=== PATIENT | male | born 1970 | race Caucasian/White ===

== ENCOUNTER → 2020-10-04 | Outpatient (CLI) | payer OTHER ==
[2020-10-04 09:40] VITALS: BP 155/99; PULSE 74; RESP 16; TEMP 98.2
--- NOTE | 2020-10-04 10:08 | P.PAINCN ---
History of Present Illness - Reason for Consult Consult date: 10/04/20 - History of Present Illness Assessment 50 years old male with a chronic history of severe low back pain patient had multiple back surgery, including laminectomy and fusion from the last surgery was done more than a year ago, patient reported that the pain is constant and localized in the low back area, it is radiated to the buttock bilaterally, he denies any motor or sensory deficits he denies any fever or night sweats and there is no change in the bowel movements or urination, intensity of the pain increasing during the daytime when he is walking or working, currently he is using Motrin 800 mg 2-3 times a day and Sizerock when necessary, he denies any side effect of the medication he denies any excessive drowsiness or sleepiness Past Medical History Past Medical History: Hypertension, Sleep Apnea/CPAP/BIPAP Additional Past Medical History / Comment(s): does not use CPAP, degenerative disks, History of Any Multi-Drug Resistant Organisms: MRSA Year Discovered:: 2019 MDRO Source:: incision Past Surgical History: Back Surgery Additional Past Surgical History / Comment(s): repair of hiatal hernia, back fusion with rods, laminectomy x 2, Past Anesthesia/Blood Transfusion Reactions: No Reported Reaction Past Psychological History: No Psychological Hx Reported Smoking Status: Former smoker Past Alcohol Use History: Occasional Additional Past Alcohol Use History / Comment(s): quit smoking 10 yrs ago, smoked for 15-20 yrs Past Drug Use History: Marijuana Additional Drug Use History / Comment(s): CBD oil - Past Family History Father Family Medical History: Cancer Medications and Allergies Home Medications Medication Instructions Recorded Confirmed Type Cyanocobalamin (Vitamin B-12) 1,000 mcg PO DAILY 09/28/20 09/28/20 History [Vitamin B-12] Ibuprofen [Motrin] 800 mg PO Q8H PRN 09/28/20 09/28/20 History Lidocaine Patch 1 tab PO DIRECTED PRN 09/28/20 09/28/20 History Lisinopril(Dose Unknown) 1 tab PO QAM 09/28/20 09/28/20 History Menthol [Biofreeze] 1 applic TOPICAL DIRECTED PRN 09/28/20 09/28/20 History amLODIPine [Norvasc] 5 mg PO DAILY 09/28/20 09/28/20 History hydroCHLOROthiazide 50 mg PO DAILY 09/28/20 09/28/20 History Ashnetodha Root Extract 300 mg PO DAILY 10/04/20 10/04/20 History HYDROcodone/APAP 10-325MG [Sizerock 10 - 325 mg PO DAILY PRN 10/04/20 10/04/20 History 10-325] Allergies Allergy/AdvReac Type Severity Reaction Status Date / Time No Known Allergies Allergy Verified 09/28/20 14:51 Physical Exam Vitals: Vital Signs Temp Pulse Resp BP Pulse Ox 10/04/20 09:29 98.2 F 74 16 155/99 98 Physical Examinations : -Constitutiona : Cooperative , not in acute distress . -HEENT : nech : supple , no Lymphadenopathy , normal thyroid size . : eyes : no ptosis , no icterus, no p hotophobia . - neurologic : Cranial nerve II to XII intact , no focal neurological deffecit . -psychatric : alert , oriented X 3 , appropriate affect , intact judgment and insight . -Lymphatic : no Lymphadenopathy . - musculoskeltal : Lumber spine moter stegnth lower extremities ,thigh and legs 5/5 Right side , 5/5 Left side deep tendon reflexes : normal Knee Jerk , normal ankle Jerk lumber facet Loading Test =positive Right , posiutive Left Range of motion of the lumbar spine Flexion 30 degrees, extension 10 degrees strait leg raising test = positive at 45 degree Fabere test= positive Right , and positive LT . Sever tenderness over the Sacroiliac joint on the Right , and Left sides Gaenslen test= positive right ,and p ositive left . Seated flexion test= positive right ,and positive Left . Distraction test= positive bilaterally Sacroiliac compression test= positive bilaterally Results Comments: MRI of the lumbar spine reviewed Assessment and Plan Plan: Assessment and plan=1-bilateral sacroiliitis. 2-postlaminectomy pain syndrome. I have lengthy discussion with the patient about the option of doing bilateral sacroiliac joint injection, patient does not want a steroid Injection, is concerned about the side effects of the steroid, and I explained to him that we can do the procedure with local anesthetic Only, and she had a good result with proceeding with RFA of the sacroiliac joint , patient agreed with the preceding. She'll be referred for medication management to DR VASQUES Time with Patient: Greater than 30 PQRS Measure Charge Sheet Measure #130: Documentation of Current Meds in Medical Chart: Patient's medications documented in chart Measure #226: Tobacco Use: Screen & Cessation Intervention: Pt not a tobacco user Measure #111: Pneumonia Vaccination: Pneumococcal vaccine NOT administered or previously given Measure #47: Advance Care Plan: Advance care planning discussed & documented, pt chose/unable to give Measure #412: Opioid Treatment Agreement: No documentation of signed opioid treatment agreement Measure #408: Opioid Therapy Follow-up Evaluation: Patient had NO f/u eval minimum every 3 months during opioid therapy Measure #317: Preventitive Care & Scrn High Bld Press & F/U: Pre-hypertensive or hypertensive BP documented, pt will f/u with PCP Measure #128: Body Mass Index (BMI) Screening & Follow-up: BMI documented ABOVE normal parameters - f/u documented Measure #131: Pain Assessment & Follow-up: Pain positive & plan documented, Follow-up scheduled Measure #431: Unhealthy Alcohol Use Preventative Care & Scrn: Patient not identified as an unhealthy alcohol user PQRS Narrative: Blood Pressure 155/99 Pain Intensity [Back] 7 Scale Used Numeric (1 - 10) Hx Alcohol Use (MH) Yes Home Medications: Ambulatory Orders Cyanocobalamin (Vitamin B-12) [Vitamin B-12] 1,000 mcg PO DAILY 09/28/20 Ibuprofen [Motrin] 800 mg PO Q8H PRN 09/28/20 Lidocaine Patch 1 tab PO DIRECTED PRN 09/28/20 Lisinopril(Dose Unknown) 1 tab PO QAM 09/28/20 Menthol [Biofreeze] 1 applic TOPICAL DIRECTED PRN 09/28/20 amLODIPine [Norvasc] 5 mg PO DAILY 09/28/20 hydroCHLOROthiazide 50 mg PO DAILY 09/28/20 Ashwagandha Root Extract 300 mg PO DAILY 10/04/20 HYDROcodone/APAP 10-325MG [Sizerock 10-325] 10 - 325 mg PO DAILY PRN 10/04/20
== END ==
LOC: PNWHC3 09:02
PROVIDERS: ATTEND Specialist
DX: M46.1 Sacroiliitis, not elsewhere classified (principal); M96.1 Postlaminectomy syndrome, not elsewhere classified; I10 Essential (primary) hypertension; Z87.891 Personal history of nicotine dependence; Z79.899 Other long term (current) drug therapy
CPT/HCPCS: 99211

== ENCOUNTER 2020-11-02 06:27 | Day surgery (SDC) | payer OTHER ==
[2020-10-29 10:22] VITALS: BMI 38.1
[~2020-11-02 06:27] MED LIST: LACTATED RINGERS 1,000 ML IV SCH
[2020-11-02 06:44] VITALS: TEMP 97.4
[2020-11-02] MEDS ORDERED: ROPIVACAINE 5MG/ML 20ML VIAL ONE (06:52)
[2020-11-02] MEDS ORDERED: MIDAZOLAM 2 MG/2 ML VIAL ONE (06:52)
[2020-11-02] MEDS ORDERED: fentaNYL (PF) 50 MCG/ML 2 ML AMP ONE (06:52)
--- NOTE | 2020-11-02 07:11 | P.PCN ---
Date of Procedure: 11/02/20 Procedure(s) Performed: Procedure= bilateral sacroiliac joints injection under fluoroscopy guidance (fluoroscopy image stored on file in the radiology Department ) Preoperative diagnosis= 1-sacroiliitis 2-lumbar postlaminectomy pain syndrome Postoperative diagnosis=Same as preop Diagnosis . Complication = none Condition= stable Anesthesia= moderate sedation with intravenous Versed 2 mg , and fentanyl 100 micrograms . Indication for the procedure= patient complaining of low back pain , examination was positive for severe tenderness over the sacroiliac joints bilaterally and patient diagnosed with sacroiliitis, for this reason he was good candidate for sacroiliac joint steroid injection. Description of the procedure= procedure risk and benefits discussed with the patient, including but not limited, risk of infection and bleeding, and ALLERGIC reaction to the medication and not complete pain relief and patient agreed with the preceding patient taken to the operating room, placed in prone position or standard monitors applied to the patient then after induction of anesthesia back prepped with chlorhexidine 3 times , Then under strict sterile technique, first I did the right sacroiliac joint the which was identified under fluoroscopy guidance been local infiltration of the skin and subcu interstitial with lidocaine 1% then 22-gauge Quincke Needle advanced slowly under fluoroscopy and placed in the right sacroiliac joint needle placement confirmed with AP and oblique and lateral view and after appropriate needle placement confirmed and after negative aspiration, or heme , then Ropivacaine 0.5% 4 mL, injected in the right sacroiliac joint after negative aspiration patient tolerated the procedure well without any complication. Then the left sacroiliac joint steroid injection done under strict sterile technique local infiltration of the skin and subcu interstitial at the location of the left sacroiliac joint then a 22-gauge Quincke Needle advanced slowly under fluoroscopy time placed in the left sacroiliac joint, needle placement confirmed with AP and oblique and lateral view then after appropriate needle placement confirmed and after negative aspiration 0.5% Marcaine 4 mL injected in the left sacroiliac joint after negative aspiration patient tolerated the procedure well that any complications and she will follow up in clinic 3 weeks NO STEROID USED FOR THE PROCEDURE, ( IT WAS DIAGNOSTIC BLOCK ONLY ),we will do 2 blocks and if he benefit then we will proceed with RFA of the sacroiliac joint and if the RFA is not approved by the insurance then we could consider referring patient to a spine surgeon for evaluation regarding fusion of the sacroiliac joint
[2020-11-02 07:14] VITALS: RESP 16
[2020-11-02 07:26] VITALS: BP 137/76; PULSE 55
[2020-11-02] MEDS ORDERED: IV FLUID CONTINUATION 1,000 ML IV ONE (07:28)
--- NOTE | 2020-11-02 07:28 | FL ---
EXAMINATION TYPE: FL guided pain mgmt statistic DATE OF EXAM: 11/02/2020 CLINICAL HISTORY: Bilateral sacroiliac joint pain. TECHNIQUE: Fluoroscopy. COMPARISON: None. FINDINGS: Fluoroscopic guidance was provided during pain relief procedure performed by Dr. Escobar . A total of 4 seconds of fluoroscopic time was utilized during the procedure and two spot images ar e acquired. Images acquired shows needle localization at level of bilateral sacroiliac joints. IMPRESSION: As Above.
== END 2020-11-02 07:41 | disposition home or self-care (01) ==
LOC: ORPAIN 06:27
PROVIDERS: ATTEND Specialist
DX: M96.1 Postlaminectomy syndrome, not elsewhere classified (principal); M46.1 Sacroiliitis, not elsewhere classified
CPT/HCPCS: J2250; J3010; J2795; G0260

== ENCOUNTER 2020-11-30 06:44 | Day surgery (SDC) | payer OTHER ==
[2020-11-26 09:52] VITALS: BMI 39.5
[2020-11-30 07:10] VITALS: RESP 16; TEMP 98
[2020-11-30] MEDS ORDERED: MIDAZOLAM 2 MG/2 ML VIAL ONE (07:23)
[2020-11-30] MEDS ORDERED: fentaNYL (PF) 50 MCG/ML 2 ML AMP ONE (07:23)
[2020-11-30] MEDS ORDERED: ROPIVACAINE 5MG/ML 20ML VIAL ONE (07:23)
--- NOTE | 2020-11-30 07:37 | P.PCN ---
Date of Procedure: 11/30/20 Procedure(s) Performed: Procedure= bilateral sacroiliac joints injection under fluoroscopy guidance (fluoroscopy image stored on file in the radiology Department ) Preoperative diagnosis= 1-sacroiliitis 2-lumbar postlaminectomy pain syndrome Postoperative diagnosis=Same as preop Diagnosis . Complication = none Condition= stable Anesthesia= moderate sedation with intravenous Versed 2 mg , and fentanyl 100 micrograms . Indication for the procedure= patient complaining of low back pain , examination was positive for severe tenderness over the sacroiliac joints bilaterally and patient diagnosed with sacroiliitis, for this reason he was good candidate for sacroiliac joint steroid injection. Description of the procedure= procedure risk and benefits discussed with the patient, including but not limited, risk of infection and bleeding, and ALLERGIC reaction to the medication and not complete pain relief and patient agreed with the preceding patient taken to the operating room, placed in prone position or standard monitors applied to the patient then after induction of anesthesia back prepped with chlorhexidine 3 times , Then under strict sterile technique, first I did the right sacroiliac joint the which was identified under fluoroscopy guidance been local infiltration of the skin and subcu interstitial with lidocaine 1% then 22-gauge Quincke Needle advanced slowly under fluoroscopy and placed in the right sacroiliac joint needle placement confirmed with AP and oblique and lateral view and after appropriate needle placement confirmed and after negative aspiration, or heme , then Ropivacaine 0.5% 4 mL, injected in the right sacroiliac joint after negative aspiration patient tolerated the procedure well without any complication. Then the left sacroiliac joint steroid injection done under strict sterile technique local infiltration of the skin and subcu interstitial at the location of the left sacroiliac joint then a 22-gauge Quincke Needle advanced slowly under fluoroscopy time placed in the left sacroiliac joint, needle placement confirmed with AP and oblique and lateral view then after appropriate needle placement confirmed and after negative aspiration 0.5% Ropivacaine 4 mL injected in the left sacroiliac joint after negative aspiration patient tolerated the procedure well that any complications and she will follow up in clinic 2-3 weeks NO STEROID USED FOR THE PROCEDURE, ( IT WAS DIAGNOSTIC BLOCK ONLY ),we will do 2 blocks and if he benefit then we will proceed with RFA of the sacroiliac joint and if the RFA is not approved by the insurance then we could consider referring patient to a spine surgeon for evaluation regarding fusion of the sacroiliac joint
[2020-11-30] MEDS ORDERED: IV FLUID CONTINUATION 1,000 ML IV ONE ×2 (07:40)
[2020-11-30 07:56] VITALS: BP 137/81; PULSE 54
--- NOTE | 2020-11-30 07:59 | FL ---
EXAMINATION TYPE: FL guided pain mgmt statistic DATE OF EXAM: 11/30/2020 HISTORY: Fluoroscopy time 7 seconds of fluoroscopy provided. IMPRESSION: 1. Fluoroscopy time.
== END 2020-11-30 08:10 | disposition home or self-care (01) ==
LOC: ORPAIN 06:44
PROVIDERS: ATTEND Specialist
DX: M46.1 Sacroiliitis, not elsewhere classified (principal); M96.1 Postlaminectomy syndrome, not elsewhere classified
CPT/HCPCS: J2250; J3010; J2795; G0260; 99152

== ENCOUNTER → 2021-01-31 | Outpatient (CLI) | payer OTHER ==
--- NOTE | 2021-01-31 08:28 | P.PN ---
Subjective Progress Note Date: 01/31/21 This is Follow up visit for this 50 years old male with a chronic history of se fatuma low back pain, diagnosed with bilateral sacroiliitis, patient had multiple back surgery, including laminectomy ,and fusion from the last surgery was done more than a year ago, patient reported that the pain is constant and localized in the low back area, it is radiated to the buttock bilaterally, he denies any motor or sensory deficits he denies any fever or night sweats and there is no change in the bowel movements or urination, intensity of the pain increasing during the daytime when he is walking or working, currently he is using Motrin 800 mg 2-3 times a day and [place] when necessary, he denies any side effect of the medication he denies any excessive drowsiness or sleepiness, recently we have done bilateral sacroiliac joint steroid injection,x2 and also been done with local anesthetic only, was only diagnostic block patient reported that he got more than 90% improvement of his low back pain and the pain relief lasted for a few days after each block, and he was able to function and do more activity, -Constitutiona : Cooperative , not in acute distress . -HEENT : nech : supple , no Lymphadenopathy , normal thyroid size . : eyes : no ptosis , no icterus, no photophobia . - neurologic : Cranial nerve II to XII intact , no focal neurological deffecit . -psychatric : alert , oriented X 3 , appropriate affect , intact judgment and insight . -Lymphatic : no Lymphadenopathy . - musculoskeltal : Lumber spine moter stegnth lower extremities ,thigh and legs 5/5 Right side , 5/5 Left side deep tendon reflexes : normal Knee Jerk , normal ankle Jerk lumber facet Loading Test =positive Right , posiutive Left Range of motion of the lumbar spine Flexion 30 degrees, extension 10 degrees strait leg raising test = positive at 45 degree Fabere test= positive Right , and positive LT . Sever tenderness over the Sacroiliac joint on the Right , and Left sides Gaenslen test= positive right ,and positive left . Seated flexion test= positive right ,and positive Left . Distraction test= positive bilaterally Sacroiliac compression test= positive bilaterally Results MRI of the lumbar spine reviewed Assessment and plan=1-bilateral sacroiliitis. 2-postlaminectomy pain syndrome. Patient had more than 90% improvement after diagnostic sacroiliac joint injection 2 , and the pain relief lasted for a few days after each block, I checked with the insurance for possible approval for RFA of the sacroiliac joint, but the insurance doesn't approve the procedure, I discussed with the patient the option of referring him for a surgeon for evaluation regarding fusion of the sacroiliac joint, issuance reported that he is not ready to have any surgery at this time , the patient could benefit from bilateral sacroiliac joint steroid injection and he agreed to have steroid with the injection. PQRS Measure Charge Sheet Measure #130: Documentation of Current Meds in Medical Chart: Patient's medications documented in chart Measure #226: Tobacco Use: Screen & Cessation Intervention: Pt not a tobacco user Measure #111: Pneumonia Vaccination: Pneumococcal vaccine NOT administered or previously given Measure #47: Advance Care Plan: Advance care planning discussed & documented, pt chose/unable to give Measure #412: Opioid Treatment Agreement: No documentation of signed opioid treatment agreement Measure #408: Opioid Therapy Follow-up Evaluation: Patient had NO f/u eval minimum every 3 months during opioid therapy Measure #317: Preventitive Care & Scrn High Bld Press & F/U: Pre-hypertensive or hypertensive BP documented, pt will f/u with PCP Measure #128: Body Mass Index (BMI) Screening & Follow-up: BMI documented ABOVE normal parameters - f/u documented Measure #131: Pain Assessment & Follow-up: Pain positive & plan documented, Follow-up scheduled Measure #431: Unhealthy Alcohol Use Preventative Care & Scrn: Patient not identified as an unhealthy alcohol user PQRS Narrative:
[2021-01-31 08:29] VITALS: BP 175/103; PULSE 71; RESP 18; TEMP 98.2
== END ==
LOC: PNWHC3 08:00
PROVIDERS: ATTEND Specialist
DX: M46.1 Sacroiliitis, not elsewhere classified (principal); M96.1 Postlaminectomy syndrome, not elsewhere classified
CPT/HCPCS: 99211

== ENCOUNTER 2021-03-08 06:28 | Day surgery (SDC) | payer OTHER ==
[2021-03-02 08:40] VITALS: BMI 40.6
[2021-03-08 06:42] VITALS: TEMP 98.6
[2021-03-08] MEDS ORDERED: LIDOCAINE 1% INJ 10MG/ML (20 ML MDV) ONE (07:00)
[2021-03-08] MEDS ORDERED: methylPREDNISolone ACETATE 40 MG/ML 1 ML VIAL ONE (07:00)
[2021-03-08] MEDS ORDERED: MIDAZOLAM 2 MG/2 ML VIAL ONE (07:00)
[2021-03-08] MEDS ORDERED: fentaNYL (PF) 50 MCG/ML 2 ML AMP ONE (07:00)
[2021-03-08] MEDS ORDERED: IOPAMIDOL M200 10 ML VIAL ONE (07:00)
[2021-03-08] MEDS ORDERED: IV FLUID CONTINUATION 1,000 ML IV ONE ×2 (07:20)
[2021-03-08 07:25] VITALS: BP 161/89; PULSE 69; RESP 18
--- NOTE | 2021-03-08 07:34 | FL ---
EXAMINATION TYPE: FL guided pain mgmt statistic DATE OF EXAM: 03/08/2021 CLINICAL HISTORY: Bilateral sacroiliac joint pain. TECHNIQUE: Fluoroscopy. COMPARISON: None. FINDINGS: Fluoroscopic guidance was provided during pain relief procedure performed by Dr. Argueta . A total of 4 seconds of fluoroscopic time was utilized during the procedure and two spot images are acquired. Images acquired shows needle localization at inferior level bilateral sacroiliac joints. IMPRESSION: As Above.
[2021-03-08] MEDS ORDERED: LACTATED RINGERS 1,000 ML IV SCH (07:45)
--- NOTE | 2021-03-08 07:49 | P.PCN ---
Date of Procedure: 03/08/21 Condition: stable Description of Procedure: PREOPERATIVE DIAGNOSIS: Sacroiliac joint dysfunction POSTOPERATIVE DIAGNOSIS: Sacroiliac joint dysfunction. PROCEDURES: 1.bilateral Sacroiliac joint steroid injection 2. Sacroiliac joint arthrogram. SURGEON: Qing Argueta ANESTHESIA: Local and IV sedation : Versed 2 mg, and fentanyl 100 g. EBL: None. Specimen removed: None Fluoroscopic image: saved to electronic medical records. PROCEDURE INDICATIONS: This patient with a history of chronic low back pain, and sacroiliac joint dysfunction. Patient tried conservative therapy. Came here for intervention management. Patient had previous bilateral sacroiliac joint injections with good pain relief. . His insurance refused for radiofrequency ablation, so patient is here for repeat SI joint procedure note. PROCEDURE DESCRIPTION: The patient was seen and identified in the preoperative area. Risks, benefits, complications, and alternatives were discussed with the patient. The patient agreed to proceed with the procedure and signed the consent. IV was started, and vital signs were stable. Patient was taken to the OR and time out was completed. The patient was placed in the prone position on procedure table and a pillow was placed under the abdomen to reduce lumbar lordosis. The lumbosacral area was prepped and draped in the usual sterile fashion. Critical pause was taken. Vital signs were closely monitored during the procedure. For the right side, the fluoroscopic camera was placed in left oblique view and right SI joint lower pole was identified. Skin entry point was infiltrated with 1% lidocaine and 22-gauge 3.5 inch spinal needle was introduced into the inferior one-third of SI joint and after penetrating into the joint arthrogram was done. 0.5 ml of [id number] contrast was injected after negative aspiration for blood, and air and negative for paresthesia. Good spread of the contrast into the SI joint has been seen. Then again after negative aspiration of spinal fluid and blood and negative for neurological symptoms, 3 mL of a solution containing total 2. mL of 1% preservative-free lidocaine mixed with 40 mg of Kenalog was injected. Needle was withdrawn intact. The entire procedure was repeated on the left side as above. Needle was withdraw n intact. Skin was cleansed, and bandages were applied. COMPLICATIONS: None. DISPOSITION / PLANS: The patient was placed in a supine position and transferred to the recovery area in a stable condition for observation and was discharged from the recovery room after meeting discharge criteria. Home discharge instructions given to the patient by the staff. The patient was reexamined prior to discharge. The patient will schedule for follow-up visit with the pain clinic in 4 weeks duration.
== END 2021-03-08 07:55 | disposition home or self-care (01) ==
LOC: ORPAIN 06:28
DX: M53.3 Sacrococcygeal disorders, not elsewhere classified (principal); M54.5 Low back pain
CPT/HCPCS: G0260; J2250; J1030; J2001 ×2; J3010; Q9966; 99152

== ENCOUNTER → 2021-04-04 | Outpatient (CLI) | payer OTHER ==
[2021-04-04 13:53] VITALS: BP 167/100; PULSE 72; RESP 18
--- NOTE | 2021-04-04 14:26 | P.PAINPG ---
Subjective Progress Note Date: 04/04/21 Principal diagnosis: Lumbar back pain, and hip pain Mr. Ross is a 50 -year-old pleasant male came to the [facility] pain clinic for postprocedure evaluation . Patient has ongoing pain for many years. Patient had lumbar back surgery, and fusion. Patient is actively working as a concrete floater. He had a previous bilateral sacroiliac joint injection which is still helping to some extent relieving his pain. He had more than 70% pain relief with previous injection. Patient describes pain is aching, throbbing, constant type of pain. Pain is radiating to below the knee. Patient rated pain levels are 7-8 out of 10 in severity. With the help of medications pain levels are 5 out of 10 in severity. Activities making pain worse. Medications, resting, interventional procedures helping in relieving patient's pain. Patient pain some days better than others. Overall activities decreased secondary to pain. Because of the pain sometimes patient is feeling lack of sleep, interest, and energy. Denied any side effects with the medications. Denied any bowel or bladder problems at this time. Patient is not using any support for walking . Patient denies any suicidal or homicidal ideations intent or plan. Patient denies any auditory or visual hallucinations. Patient denied any red flag symptoms related to pain. Objective - Vital Signs Vital signs: Vital Signs Temp Pulse 72 04/04/21 13:48 Resp 18 04/04/21 13:48 BP 167/100 04/04/21 13:48 Pulse Ox 95 04/04/21 13:48 - Exam General: Well-developed, well-nourished, no acute distress HEENT: Normocephalic, and atraumatic Neck: Supple, no neck swelling Psychiatric: Appropriate mood, and affect PULMONOLOGIST: No noticeable focal neurological deficits Musculoskeletal: Upper extremity: Normal strength, and range of motion. Sensation grossly intact Lower extremity: Normal strength, and decreased range of motion secondary to pain Lumbar spine: Paravertebral tenderness: positive , healed lumbar scar Lumbar facet load test : positive Sacroiliac joint tenderness: Positive Thigh thrust test: Positive SI joint compression test: Positive Fabere test: Positive - Constitutional Constitutional Comment(s): 13 point review of symptoms negative except as mentioned in the history of present illness Assessment and Plan Assessment: Lumbar postlaminectomy syndrome Lumbar spondylosis without myelopathy Sacroiliac joint dysfunction Plan: #1 psychological risk tools were reviewed. Diagnoses, prognosis, and multiple treatment options including but not limited to physical therapy, interventional therapy, adjunct medication therapy, complementary alternative medicine options, narcotic medication, and surgical options were discussed with the patient. And all questions were answered to the patient's satisfaction. #2 treatment plan agreement : Patient was thoroughly discussed regarding the treatment options, alternatives, and importance of exercises as tolerated. Patient clearly understood. #3 Patient was counseled on importance of regular exercise. Including franklin chi, aerobic exercises as tolerated. Which helps for chronic pain, and overall well- being. Patient also counseled regarding importance of weight control role in chronic pain, and overall other health issues. By altering diet habits, minimizing sugar intake, & processed foods helps in minimizing Inflammation. Patient also recommended to drink plenty of water daily. #4 investigations: MAPS- reviewed , urine drug test-not done #5 diagnostic tests: None #6 consultation : Neurosurgical consultation # 7 interventional procedures: Bilateral sacroiliac joint injection. Procedure, complications, alternatives discussed with the patient. #8 medications None from the pain clinic #9 morphine milligrams equivalents dose ( MME) per day: 0. # 10 TENS unit's, #11 disposition: scheduled to follow up with pain clinic in 4-8 weeks duration. Time with Patient: Less than 30 PQRS Measure Charge Sheet Measure #130: Documentation of Current Meds in Medical Chart: Patient's medications documented in chart Measure #226: Tobacco Use: Screen & Cessation Intervention: Pt not a tobacco u ser Measure #111: Pneumonia Vaccination: Pneumococcal vaccine NOT administered or previously given Measure #47: Advance Care Plan: Advance care planning discussed & documented, pt chose/unable to give Measure #412: Opioid Treatment Agreement: No documentation of signed opioid treatment agreement Measure #408: Opioid Therapy Follow-up Evaluation: Patient had NO f/u eval minimum every 3 months during opioid therapy Measure #317: Preventitive Care & Scrn High Bld Press & F/U: Pre-hypertensive or hypertensive BP documented, pt will f/u with PCP Measure #128: Body Mass Index (BMI) Screening & Follow-up: BMI documented ABOVE normal parameters - f/u documented Measure #131: Pain Assessment & Follow-up: Pain positive & plan documented Measure #431: Unhealthy Alcohol Use Preventative Care & Scrn: Patient not identified as an unhealthy alcohol user Mode of Arrival: Ambulatory - Pain Location Back Non-Pharmacological Interventions: Heat, Home Exercise, Ice, Massage Pharmacological Interventions: Block, PRN Medication PQRS Narrative: Blood Pressure 167/100 Pain Intensity [Back] 10 Scale Used Numeric (1 - 10) Hx Alcohol Use (MH) Yes Home Medications: Ambulatory Orders Ibuprofen [Motrin] 800 mg PO Q8H PRN 09/28/20 Lidocaine 5% Patch [Lidoderm] 1 patch TOPICAL DAILY PRN 09/28/20 Menthol [Biofreeze] 1 applic TOPICAL DIRECTED PRN 09/28/20 amLODIPine [Norvasc] 10 mg PO DAILY 09/28/20 lisinopriL [Zestril] 40 mg PO QAM 09/28/20 Cbd Topical 1 dose TOPICAL DIRECTED PRN 11/25/20 Allopurinol [Zyloprim] 100 mg PO DAILY 03/30/21 Cyanocobalamin (Vitamin B-12) [Vitamin B12] 1,000 mcg PO DAILY 03/30/21 Meloxicam 15 mg PO DAILY 03/30/21 Controlled Substance Measures - Controlled Substance Measures Is patient prescribed a controlled substance at discharge?: No
== END ==
LOC: PNWHC3 13:28
DX: M96.1 Postlaminectomy syndrome, not elsewhere classified (principal); M47.816 Spondylosis without myelopathy or radiculopathy, lumbar region; M53.3 Sacrococcygeal disorders, not elsewhere classified
CPT/HCPCS: 99211

== ENCOUNTER 2021-07-19 06:25 | Day surgery (SDC) | payer OTHER ==
[2021-07-13 09:28] VITALS: BMI 38.2
[2021-07-19 07:01] VITALS: RESP 16; TEMP 97.5
[2021-07-19] MEDS ORDERED: LACTATED RINGERS 1,000 ML IV ONE (07:05)
[2021-07-19] MEDS ORDERED: LIDOCAINE 1% (10MG/ML) FOR IV START INTRADERMA ONE (07:05)
[2021-07-19] MEDS ORDERED: fentaNYL (PF) 50 MCG/ML 2 ML AMP ONE (07:20)
[2021-07-19] MEDS ORDERED: MIDAZOLAM 2 MG/2 ML VIAL ONE (07:20)
[2021-07-19] MEDS ORDERED: methylPREDNISolone ACETATE 40 MG/ML 1 ML VIAL ONE (07:20)
[2021-07-19] MEDS ORDERED: IOPAMIDOL M200 10 ML VIAL ONE (07:20)
[2021-07-19] MEDS ORDERED: ROPIVACAINE 5MG/ML 20ML VIAL ONE (07:20)
--- NOTE | 2021-07-19 07:24 | P.PCN ---
Date of Procedure: 07/19/21 Description of Procedure: Procedure: Sacroiliac joint injection bilateral Preoperative diagnosis: Sacroiliitis Postoperative diagnosis: Sacroiliitis Imaging: Fluoroscopy was used, images where saved to the medical record Complications: none Anesthesia: 1% lidocaine 5cc 2 mg of Versed and 100 mg of fentanyl Description of the procedure: procedure risk and benefits discussed with the patient, including but not limited, risk of infection and bleeding, and allergic reaction to the medication and incomplete pain relief. Patient agreed and signed consent. Patient was taken to the room and placed in a prone position. Chlorhexidine was used to cleanse the skin. Under sterile conditions patient skin was anesthetized 1% lidocaine. Subcutaneous tissues were also anesthetized with a total 5 mL of 1% lidocaine. After that, a 22-gauge spinal needle was advanced through the anesthetized location under fluoroscopic guidance. Needle was advanced into the inferior portion of the sacroiliac joint. IV contrast was used to confirm spread within the joint. After adequate spread was achieved, 2.5 ML's of 0.5% ropivacaine with 40 mg of methylprednisolone was injected into the joint (steroid split between both sides if bilateral). Patient tolerated the procedure well. Sent to the recovery room in stable condition. Patient will follow up as directed.
[2021-07-19] MEDS ORDERED: IV FLUID CONTINUATION 1,000 ML IV ONE (07:39)
[2021-07-19 08:03] VITALS: BP 118/78; PULSE 65
--- NOTE | 2021-07-19 08:06 | FL ---
Fluoroscopy INDICATION: Pain FINDINGS: Fluoroscopy time: 5 seconds. Images obtained: 2. IMPRESSIONS: 1. Documentation of fluoroscopy.
== END 2021-07-19 08:07 | disposition home or self-care (01) ==
LOC: ORPAIN 06:25
PROVIDERS: ATTEND Hospitalist
DX: M46.1 Sacroiliitis, not elsewhere classified (principal)
CPT/HCPCS: J1030; Q9966; J2795; G0260

== ENCOUNTER → 2021-08-15 | Outpatient (CLI) | payer OTHER ==
[2021-08-15 14:09] VITALS: BP 165/119; PULSE 69; RESP 16; TEMP 98.6
--- NOTE | 2021-08-15 14:24 | P.PN ---
Subjective Progress Note Date: 08/15/21 Principal diagnosis: A 51 yr old male with a history of severe and chronic low back pain secondary to lumbar degenerative disc diseases and lumbar spondylosis with facet arthropathy presents today for evaluation status post bilateral SI joint injection #2. Patient states he expressed 80% pain relief on the first week and 40% pain relief and the second week and thereafter. Pain level is currently at 6 out of 10 in intensity, dull and achy in the lower aspect of the lumbar spine with radiation to the left hip greater than right. 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 Pain is alleviated with medications, topical patches, injections, ice, home stretching regimen, repositioning and rest. Interventional pain procedures completed include bilateral SI joint injections 2 Patient is currently on Motrin OTC Patient denies any side effects of the medication(s), denies excessive drowsiness or sleepiness, denies suicidal ideation and reports that the current pain medication is helping to control the pain and improve activities of daily living. Patient denies any motor or sensory deficits. Patient denies any fever or night sweats, denies any change in the bowel movements or urination. Physical Examination: -Constitutional: Cooperative. Not in acute distress . -HEENT: Neck is supple. No lymphadenopathy. No thyromegaly. Normal thyroid size. Eyes: No ptosis , no icterus, no photophobia. ENT: No auditory deficits. Normal oropharynx. No Thrush. - Respiratory: Chest clear to auscultations bilaterally. No wheezing. No rhonchi. - Cardiovascular: Regular rate and rhythm. S1 / S2 , no S3 , no S4. - Gastrointestinal: Abdomen soft no tenderness. Bowel sounds positive in all four quadrants. No organomegaly. - Genitourinary: Deferred. - Neurologic: Cranial nerve II to XII intact. No focal neurological deficits. - Psychatric: Alert & oriented x 3. Matching mood & appropriate affect. Judgment and insight intact. - Lymphatic: No Lymphadenopathy. - Musculoskeletal: Cervical spine: Muscle bulk/ tone/ strength in the bilateral upper extremities normal. Facet loading test cervical area positive. Lumbar spine: Motor bulk/ tone/ strength lower extremities , thigh and legs : 5/5 Deep tendon reflexes : Normal Knee Jerk. Normal Ankle Jerk . Mild Vertebral body tenderness to palpation over L5 Lumbar Facet Loading Test positive over the bilateral L4-L5 and L5-S1 with jump reflex and accompanying paraspinal muscle spasms Straight Leg Raise: positive at 30 degrees right side/ left side Gaenslen's Test postive Sacral spine : Severe tenderness over the Sacroiliac joint: right side / left side Range of motion: Flexion of the lumbar spine <60 degrees Range of motion: Extension of the lumbar spine <20 degrees Gaenslen's Test positive Sherin test: positive right side / left side Assessment and plan: Chronic low back pain secondary to lumbar degenerative disc disease , lumbar spondylosis with facet arthropathy without myelopathy Recommendation of facet blocks of the medial branches of the bilateral L4-L5, L5-S1 May need a series of injections up until RFA for sufficient pain relief Risks, benefits of procedure discuss the patient verbalized understanding Denies aspirin or anticoagulant use All patient questions answered MAPS reviewed and it was appropriate. I have spent 31 minutes on patient care today. Dr Escobar was available by phone for the evaluation of this patient. The time was used to review the medical records including relevant urine studies and Prescription history (MAPs), review of the available imaging, evaluation and examination of the patient, coordination of care with the medical staff and if applicable referring physicians, as well as creation of the medical record Objective - Vital Signs Vital signs: Vital Signs Temp 98.6 F 08/15/21 13:57 Pulse 69 08/15/21 13:57 Resp 16 08/15/21 13:57 BP 165/119 08/15/21 13:57 Pulse Ox PQRS Measure Charge Sheet Mode of Arrival: Ambulatory - Pain Location Bilateral Lower Back Non-Pharmacological Interventions: Exercise, Ice Pharmacological Interventions: Block, PRN Medication PQRS Narrative: Blood Pressure 165/119 Pain Intensity [Bilateral 6 Lower Back] Scale Used Numeric (1 - 10) Hx Alcohol Use (MH) Yes Home Medications: Ambulatory Orders Ibuprofen [Motrin] 800 mg PO Q8H PRN 09/28/20 Lidocaine 5% Patch [Lidoderm] 1 patch TOPICAL DAILY PRN 09/28/20 Menthol [Biofreeze] 1 applic TOPICAL DIRECTED PRN 09/28/20 amLODIPine [Norvasc] 10 mg PO DAILY 09/28/20 lisinopriL [Zestril] 40 mg PO QAM 09/28/20 Cbd Topical 1 dose TOPICAL DIRECTED PRN 11/25/20 Allopurinol [Zyloprim] 100 mg PO DAILY 03/30/21 Cyanocobalamin (Vitamin B-12) [Vitamin B12] 1,000 mcg PO DAILY 03/30/21
== END ==
LOC: PNWHC3 13:00
PROVIDERS: ATTEND Physician Assistant Medical
DX: M51.36 Other intervertebral disc degeneration, lumbar region (principal); M47.816 Spondylosis without myelopathy or radiculopathy, lumbar region; G89.29 Other chronic pain
CPT/HCPCS: 99211

== ENCOUNTER 2021-10-03 13:47 | Emergency (ER) | payer OTHER ==
[2021-10-03 13:55] VITALS: TEMP 97.8
--- NOTE | 2021-10-03 15:06 | ED ---
General Adult HPI - General Chief complaint: Abdominal Pain Stated complaint: Abdominal Pain Time Seen by Provider: 10/03/21 14:00 Source: patient, RN notes reviewed, old records reviewed Mode of arrival: ambulatory Limitations: no limitations - History of Present Illness Initial comments: This is a 51-year-old male presents emergency Department complaining of lower abdominal pain. Patient states it's all across the lower abdomen particularly center. Patient states his been ongoing for the last couple of days. Patient states he did have a colonoscopy a while ago and ever since he's had the colonoscopy he feels as though his had abdominal issues but no kind of pain like he is having today. Patient states the pain was so severe last night he was doubled over. Patient denies any diarrhea. Patient denies any nausea vomiting. Patient denies any fever chills or cough. Patient states he has noticed that his urinary stream recently has been less strong but there is no pain or hematuria. - Related Data Home Medications Medication Instructions Recorded Confirmed Ibuprofen [Motrin] 800 mg PO Q8H PRN 09/28/20 08/15/21 Lidocaine 5% Patch [Lidoderm] 1 patch TOPICAL DAILY PRN 09/28/20 08/15/21 Menthol [Biofreeze] 1 applic TOPICAL DIRECTED PRN 09/28/20 08/15/21 amLODIPine [Norvasc] 10 mg PO DAILY 09/28/20 08/15/21 lisinopriL [Zestril] 40 mg PO QAM 09/28/20 08/15/21 Cbd Topical 1 dose TOPICAL DIRECTED PRN 11/25/20 08/15/21 Allopurinol [Zyloprim] 100 mg PO DAILY 03/30/21 08/15/21 Cyanocobalamin (Vitamin B-12) 1,000 mcg PO DAILY 03/30/21 08/15/21 [Vitamin B12] Previous Rx's Medication Instructions Recorded Amoxicillin/Potassium Clav 1 each PO Q12HR #28 tab 10/03/21 [Augmentin 875-125 Tablet] Ketorolac [Toradol] 10 mg PO Q6HR #15 tab 10/03/21 Allergies Allergy/AdvReac Type Severity Reaction Status Date / Time No Known Allergies Allergy Verified 10/03/21 13:49 Review of Systems ROS Statement: Those systems with pertinent positive or pertinent negative responses have been documented in the HPI. ROS Other: All systems not noted in ROS Statement are negative. Past Medical History Past Medical History: Hypertension, Musculoskeletal Disorder, Sleep Apnea/CPAP/BIPAP Additional Past Medical History / Comment(s): Does not use CPAP, degenerative discs. History of Any Multi-Drug Resistant Organisms: MRSA Date of last positivie culture/infection: 2018 MDRO Source:: incision Past Surgical History: Back Surgery, Hernia Repair Additional Past Surgical History / Comment(s): Repair of hiatal hernia, back fusion with rods, laminectomy X2, pain clinic procedure. Past Anesthesia/Blood Transfusion Reactions: No Reported Reaction Past Psychological History: No Psychological Hx Reported Smoking Status: Former smoker Past Alcohol Use History: None Reported Past Drug Use History: None Reported - Past Family History Father Family Medical History: Cancer General Exam - General Exam Comments Initial Comments: GENERAL: Patient is well-developed and well-nourished. Patient is nontoxic and well- hydrated and is in mild distress. ENT: Neck is soft and supple. No significant lymphadenopathy is noted. Oropharynx is clear. Moist mucous membranes. Neck has full range of motion without el iciting any pain. EYES: The sclera were anicteric and conjunctiva were pink and moist. Extraocular movements were intact and pupils were equal round and reactive to light. Eyelids were unremarkable. PULMONARY: Unlabored respirations. Good breath sounds bilaterally. No audible rales rhonchi or wheezing was noted. CARDIOVASCULAR: There is a regular rate and rhythm without any murmurs gallops or rubs. ABDOMEN: Abdomen is tender in the suprapubic region. And less tender right lower quadr ant. SKIN: Skin is clear with no lesions or rashes and otherwise unremarkable. NEUROLOGIC: Patient is alert and oriented x3. Cranial nerves II through XII are grossly intact. Motor and sensory are also intact. Normal speech, volume and content. Symmetrical smile. MUSCULOSKELETAL: Normal extremities with adequate strength and full range of motion. No lower extremity swelling or edema. No calf tenderness. LYMPHATICS: No significant lymphadenopathy is noted PSYCHIATRIC: Normal psychiatric evaluation. Limitations: no limitations Course Vital Signs 10/03/21 13:49 Temperature 97.8 F Pulse Rate 68 Respiratory 18 Rate Blood Pressure 166/99 O2 Sat by Pulse 97 Oximetry Medical Decision Making - Medical Decision Making CAT scan showed diverticulitis without abscess. - Lab Data Result diagrams: 10/03/21 15:16 10/03/21 15:16 Lab Results 10/03/21 10/03/21 10/03/21 Range/Units 15:16 15:16 15:16 WBC 10.1 (3.8-10.6) k/uL RBC 5.21 (4.30-5.90) m/uL Hgb 16.7 (13.0-17.5) gm/dL Hct 47.3 (39.0-53.0) % MCV 90.6 (80.0-100.0) fL MCH 32.0 (25.0-35.0) pg MCHC 35.3 (31.0-37.0) g/dL RDW 12.8 (11.5-15.5) % Plt Count 244 (150-450) k/uL MPV 7.4 Neutrophils % 74 % Lymphocytes % 18 % Monocytes % 6 % Eosinophils % 1 % Basophils % 0 % Neutrophils # 7.4 (1.3-7.7) k/uL Lymphocytes # 1.8 (1.0-4.8) k/uL Monocytes # 0.6 (0-1.0) k/uL Eosinophils # 0.1 (0-0.7) k/uL Basophils # 0.0 (0-0.2) k/uL Sodium 135 L (137-145) mmol/L Potassium 4.3 (3.5-5.1) mmol/L Chloride 105 (98-107) mmol/L Carbon Dioxide 23 (22-30) mmol/L Anion Gap 7 mmol/L BUN 10 (9-20) mg/dL Creatinine 0.55 L (0.66-1.25) mg/dL Est GFR (CKD-EPI)AfAm >90 (>60 ml/min/1.73 sqM) Est GFR (CKD-EPI)NonAf >90 (>60 ml/min/1.73 sqM) Glucose 99 (74-99) mg/dL Calcium 9.2 (8.4-10.2) mg/dL Total Bilirubin 0.9 (0.2-1.3) mg/dL AST 23 (17-59) U/L ALT 26 (4-49) U/L Alkaline Phosphatase 52 (38-126) U/L Total Protein 7.1 (6.3-8.2) g/dL Albumin 4.1 (3.5-5.0) g/dL Amylase 113 H (30-110) U/L Lipase 365 H (23-300) U/L Urine Color Yellow Urine Appearance Clear (Clear) Urine pH 6.0 (5.0-8.0) Ur Specific [place] 1.025 (1.001-1.035) Urine Protein Trace H (Negative) Urine Glucose (UA) Negative (Negative) Urine Ketones Negative (Negative) Urine Blood Negative (Negative) Urine Nitrite Negative (Negative) Urine Bilirubin Negative (Negative) Urine Urobilinogen <2.0 (<2.0) mg/dL Ur Leukocyte Esterase Negative (Negative) Disposition Clinical Impression: Diverticulitis Disposition: HOME SELF-CARE Condition: Good Instructions (If sedation given, give patient instructions): Diverticulitis (ED) Prescriptions: Amoxicillin/Potassium Clav [Augmentin 875-125 Tablet] 1 each PO Q12HR #28 tab Ketorolac [Toradol] 10 mg PO Q6HR #15 tab Is patient prescribed a controlled substance at d/c from ED?: No Referrals: Raffaele Grant DO [Primary Care Provider] - 1-2 days Time of Disposition: 15:55
[2021-10-03 15:25] LABS: Appearance,Urine Clear (Clear); Bilirubin,Urine Negative (Negative); Blood,Urine Negative (Negative); Color,Urine Yellow; Glucose,Urine (UA) Negative (Negative); Ketones,Urine Negative (Negative); Leukocyte Esterase,Urine Negative (Negative); Nitrite,Urine Negative (Negative); Protein,Urine Trace (Negative); Specific Gravity,Urine 1.025 (1.001-1.035); Urobilinogen,Urine <2.0 mg/dL (<2.0)
[2021-10-03 15:34] LABS: ALT 26 U/L (4-49); AST 23 U/L (17-59); African American GFR (CKD) >90 (>60 ml/min/1.73 sqM); Albumin 4.1 g/dL (3.5-5.0); Alkaline Phosphatase 52 U/L (38-126); Amylase 113 U/L (30-110); Anion Gap 7 mmol/L; Blood Urea Nitrogen 10 mg/dL (9-20); Calcium 9.2 mg/dL (8.4-10.2); Carbon Dioxide 23 mmol/L (22-30); Chloride 105 mmol/L (98-107); Glucose 99 mg/dL (74-99); Lipase 365 U/L (23-300); Non-African American GFR(CKD) >90 (>60 ml/min/1.73 sqM); Potassium 4.3 mmol/L (3.5-5.1); Sodium 135 mmol/L (137-145); Total Bilirubin 0.9 mg/dL (0.2-1.3); Total Protein 7.1 g/dL (6.3-8.2)
[2021-10-03 15:41] LABS: Basophils % (A) 0 %; Eosinophils # (A) 0.1 k/uL (0-0.7); Eosinophils % (A) 1 %; HCT 47.3 % (39.0-53.0); HGB 16.7 gm/dL (13.0-17.5); Lymphocytes # (A) 1.8 k/uL (1.0-4.8); Lymphocytes % (A) 18 %; MCHC 35.3 g/dL (31.0-37.0); MCV 90.6 fL (80.0-100.0); Mean Platelet Volume 7.4; Monocytes # (A) 0.6 k/uL (0-1.0); Monocytes % (A) 6 %; Neutrophils # (A) 7.4 k/uL (1.3-7.7); Neutrophils % (A) 74 %; Platelet Count 244 k/uL (150-450); RBC 5.21 m/uL (4.30-5.90); RDW 12.8 % (11.5-15.5); WBC 10.1 k/uL (3.8-10.6)
--- NOTE | 2021-10-03 15:56 | CT ---
EXAMINATION TYPE: CT abdomen pelvis wo con DATE OF EXAM: 10/03/2021 HISTORY: Pelvic pain. CT DLP: 1845 mGycm. Automated Exposure Control for Dose Reduction was Utilized. TECHNIQUE: CT scan of the abdomen and pelvis is performed without oral or IV contrast. COMPARISON: NONE FINDINGS: Within the limitations of a non-contrast study, the following observations are made. LUNG BASES: No significant abnormality is appreciated. LIVER/GB: No significant abnormality is appreciated. PANCREAS: No significant abnormality is seen. SPLEEN: No significant abnormality is seen. ADRENALS: Slightly low dense thickening left adrenal gland favoring benign lipid rich hyperplasia. KIDNEYS: No renal stones or hydronephrosis seen bilaterally. BOWEL: Suboptimal evaluation of bowel without enteric contrast. No suspicious small or large bowel di latation. Normal appearing appendix from cecum. Few scattered colonic diverticula greatest in distal aspect where there is mild/moderate ill-defined fluid and fat stranding at poorly distended colon wit h moderate wall thickening in the central pelvis axial image 133. No well-formed fluid collection or abscess. No free air clearly seen. GENITAL ORGANS: Prostate gland normal in size with central calcifications. LYMPH NODES: No greater than 1cm abdominal or pelvic lymph nodes are appreciated. OSSEOUS STRUCTURES: Posterior interpedicular rods and screws bilaterally at L2-L5 level. Posterior de compression changes noted. Artificial disc material L4-L5 level with endplate sclerosis. Moderate to severe disc space narrowing L5-S1 level. Moderate axial joint space loss in both hips with mild to mo derate acetabular spurring. OTHER: Coils from ventral wall hernia repair surgery overlie the anterior abdominal wall just above t he pubic symphysis. IMPRESSION: There is moderate acute diverticulitis involving the mid sigmoid colon in the central mid pelvis
[2021-10-03] MEDS ORDERED: ACET/COD 300 MG/30 MG STARTER PACK 6 TAB BTL PO STA (16:05)
[2021-10-03 16:19] VITALS: BP 135/74; PULSE 85; RESP 16
== END 2021-10-03 16:19 | disposition home or self-care (01) ==
LOC: EC 13:47
DX: K57.32 Diverticulitis of large intestine without perforation or abscess without bleeding (principal); I10 Essential (primary) hypertension; Z87.891 Personal history of nicotine dependence; Z79.899 Other long term (current) drug therapy
CPT/HCPCS: 36415; 51798; 74176; 80053; 81003; 82150; 83690; 85025; 99284